=== PATIENT | male | born 1950 | race Caucasian/White ===

== ENCOUNTER → 2025-07-30 16:11 | Outpatient (REF) | payer OTHER, SELFPAY | LOC: RAD 16:11 | PROVIDERS: ATTENDING PHYSICIAN Internal Medicine Critical Care Medicine; FAMILY PHYSICIAN Internal Medicine | DX: Z77.39 Contact with and (suspected) exposure to other war theater (principal); Z87.01 Personal history of pneumonia (recurrent) | CPT/HCPCS: 71250 ==